=== PATIENT | female | born 1945 | race Caucasian/White ===

== ENCOUNTER 2018-03-10 10:00 | Outpatient (CLI) | payer MEDICARE | END 2018-03-10 10:01 | disposition home or self-care (01) | LOC: BICMAMMO 10:00 | PROVIDERS: ATTEND Obstetrics & Gynecology | DX: Z12.31 Encounter for screening mammogram for malignant neoplasm of breast (principal); Z80.3 Family history of malignant neoplasm of breast | CPT/HCPCS: 77063; 77067 ==

== ENCOUNTER 2018-04-27 13:30 | Outpatient (CLI) | payer MEDICARE ==
--- NOTE | 2018-04-27 16:28 | BD ---
BONE DENSITOMETRY USING DEXA: Date: 04/27/18 HISTORY: Postmenopausal screening for osteoporosis. FINDINGS: Lumbar Spine: BMD (g/cm2) L1 0.920 T-Score: -0.6 Z-Score: 1.3 L2 0.980 T-Score: -0.4 Z-Score: 1.7 L3 1.007 T-Score: -0.7 Z-Score: 1.6 L4 0.939 T-Score: -1.1 Z-Score: 1.3 L1-L4 0.961 T-Score: -0.8 Z-Score: 1.4 Femoral Neck: 0.756 T-Score: -0.8 Z-Score: 1.1 Total Femur: 0.846 T-Score: -0.8 Z-Score: 0.8 IMPRESSION: Normal bone mineral density. No evidence of osteopenia/osteoporosis. POS: OFF
== END 2018-04-27 13:31 | disposition home or self-care (01) ==
LOC: BICMAMMO 13:30
PROVIDERS: ATTEND Internal Medicine Rheumatology
DX: M81.0 Age-related osteoporosis without current pathological fracture (principal)
CPT/HCPCS: 77080

== ENCOUNTER 2018-07-23 09:58 | Outpatient (CLI) | payer MEDICARE ==
--- NOTE | 2018-07-23 12:16 | MRI ---
MRI LUMBAR SPINE: 07/23/2018 PROVIDED CLINICAL HISTORY: Lumbar radiculopathy. FINDINGS: Five lumbar vertebral bodies are assumed. Lumbar alignment appears normal. Vertebral body heights a ppear preserved. No focal concerning regional marrow signal abnormality is evident. The conus medul rosana is normal in signal and terminates at an appropriate level. The visualized extraspinal soft ti ssues appear unremarkable. L1-L2: There is no significant central canal or foraminal narrowing apparent. L2-L3: There is bilateral facet arthritis without significant central canal or foraminal narrowing a pparent. L3-L4: There is a broad-based disk bulge and bilateral facet arthritis. There is a superimposed lef t foraminal broad disk protrusion, producing moderate to severe left foraminal narrowing, with potent ial for impingement on the exiting left L3 nerve root. No significant central canal or right foramin al narrowing apparent. There is a small annular tear involving the dorsal disk margin. L4-L5: There is a broad-based disk bulge and bilateral facet arthritis. There is a small annular te ar involving the dorsal disk margin. There is no significant central canal or foraminal narrowing ap parent. L5-S1: There is a broad-based disk bulge and bilateral facet arthritis. There is no significant tanesha tral canal stenosis apparent. There is mild bilateral foraminal narrowing. IMPRESSION: Lumbar disk and facet degenerative changes producing primarily foraminal narrowing, as above. POS: OFF
== END 2018-07-23 09:59 | disposition home or self-care (01) ==
LOC: SCSMRI 09:58
PROVIDERS: ATTEND Internal Medicine
DX: M51.16 Intervertebral disc disorders with radiculopathy, lumbar region (principal); M48.061 Spinal stenosis, lumbar region without neurogenic claudication; M48.07 Spinal stenosis, lumbosacral region
CPT/HCPCS: 72148

== ENCOUNTER 2019-06-07 09:59 | Outpatient (CLI) | payer MEDICARE ==
--- NOTE | 2019-06-07 11:25 | MMO ---
Bilateral MAMMO Bilat Screen [facility]. CLINICAL HISTORY: Patient is 73 years old and is seen for screening. The patient has the following family history of breast cancer: aunt, malignant (generic). The patient has no personal history of cancer. VIEWS: The views performed were: bilateral craniocaudal with tomosynthesis and bilateral mediolateral oblique with tomosynthesis. FILMS COMPARED: The present examination has been compared to prior imaging studies performed at [facility] on 12/23/2014, 01/02/2016, 03/06/2017 and 03/10/2018. This study has been interpreted with the assistance of computer-aided detection. MAMMOGRAM FINDINGS: There are scattered fibroglandular densities. There are no suspicious masses, suspicious calcifications, or new areas of architectural distortion. IMPRESSION: THERE IS NO MAMMOGRAPHIC EVIDENCE OF MALIGNANCY. A ROUTINE FOLLOW-UP MAMMOGRAM IN 1 YEAR IS RECOMMENDED. THE RESULTS OF THIS EXAM WERE SENT TO THE PATIENT. ACR BI-RADS Category 1 - Negative MAMMOGRAPHY NOTE: 1. A negative mammogram report should not delay a biopsy if a dominant of clinically suspicious mass is present. 2. Approximately 10% to 15% of breast cancers are not detected by mammography. 3. Adenosis and dense breasts may obscure an underlying neoplasm. Reported by: YAJAIRA NIELSON MD Electonically Signed: [id number]
== END 2019-06-07 10:00 | disposition home or self-care (01) ==
LOC: BICMAMMO 09:59
PROVIDERS: ATTEND Obstetrics & Gynecology
DX: Z12.31 Encounter for screening mammogram for malignant neoplasm of breast (principal); Z80.3 Family history of malignant neoplasm of breast
CPT/HCPCS: 77063; 77067